=== PATIENT | male | born 1935 | race Caucasian/White ===

== ENCOUNTER 2017-02-02 09:15 | Emergency (ER) | payer MEDICARE, OTHER ==
[~2017-02-02] VITALS: Ht 167.6 cm; Wt 72.5 kg
[2017-02-02 09:16] VITALS: BP 156/73; PULSE 83; RESP 18; TEMP 97.8; O2SAT 94
[2017-02-02] MEDS ORDERED: ASPI-516 CHEW (09:30)
[2017-02-02] MEDS ORDERED: METO100T PO (09:30)
[2017-02-02] MEDS ORDERED: LOVA40TA PO (09:30)
[2017-02-02] MEDS ORDERED: AMLO10TA2 PO (09:30)
[2017-02-02 09:31] VITALS: BP 147/70; PULSE 82; RESP 18; O2SAT 98
[2017-02-02] MEDS ORDERED: KETOROLAC TROMETHAMINE 30 MG/ML (IVP) VIAL IV PUSH ONE (09:45)
[2017-02-02] MEDS ORDERED: methylPREDNISolone SOD SUCC 125 MG/2 ML VIAL IV PUSH ONE (09:45)
[2017-02-02 10:02] LABS: AUTOMATED NEUTROPHIL # 7.9 TH/MM3 (1.8-7.7); BASOPHIL # 0.1 TH/MM3 (0-0.2); BASOPHIL % 0.6 % (0.0-2.0); EOSINOPHIL # 0.3 TH/MM3 (0-0.4); EOSINOPHIL % 2.5 % (0.0-4.0); HEMATOCRIT 43.4 % (39.0-51.0); HEMOGLOBIN 14.3 GM/DL (13.0-17.0); LYMPH % 15.8 % (9.0-44.0); LYMPHOCYTE # 1.9 TH/MM3 (1.0-4.8); MEAN PLATELET VOLUME 8.2 FL (7.0-11.0); MONO % 13.5 % (0.0-8.0); MONOCYTE # 1.6 TH/MM3 (0-0.9); NEUT % 67.6 % (16.0-70.0); PLATELET COUNT 228 TH/MM3 (150-450); RED BLOOD COUNT 4.47 MIL/MM3 (4.50-5.90); RED CELL DISTRIBUTION WIDTH 13.3 % (11.6-17.2); WHITE BLOOD COUNT 11.7 TH/MM3 (4.0-11.0)
[2017-02-02 10:25] LABS: BICARBONATE 29.2 MEQ/L (21.0-32.0); C-REACTIVE PROTEIN 0.36 MG/DL (0.00-0.30); CALCIUM 8.9 MG/DL (8.5-10.1); CREATININE 0.98 MG/DL (0.60-1.30)
--- NOTE | 2017-02-02 10:31 | RADRPT ---
EXAM DATE/TIME: 02/02/2017 10:09 [facility] COMPARISON: No previous studies available for comparison. INDICATIONS : Left arm pain. MEDICAL HISTORY : Hypercholesterolemia. Hypertension. Cardiac disorders. SURGICAL HISTORY : Coronary artery stent. ENCOUNTER: Initial ACUITY: 1 day PAIN SCORE: 8/10 LOCATION: Left arm. FINDINGS: There is spontaneous flow documented in the brachial, basilic, cephalic, axillary, and subclavian vei ns. The vessels are compressible and augmentation response is documented. No filling defects are se en. The flow is phasic with respiration. Direction of flow in the jugular vein is caudal. CONCLUSION: No evidence of deep venous thrombosis within the left upper extremity. Sebastian Wright MD on February 02, 2017 at 10:28 Board Certified Radiologist. This report was verified electronically.
--- NOTE | 2017-02-02 10:49 | PD ---
HPI Chief Complaint: Pain: Acute or Chronic Time Seen by Provider: 09:41 Travel History International Travel<30 days: No Contact w/Intl Traveler<30days: No Traveled to known affect area: No History of Present Illness HPI This is an 81-year-old male who presents to the emergency department with pain in his left arm, constant, severe that started last night keeping him from sleep , worse with movement making it difficult for him to raise his arm. He denies any fevers or chills. 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 PFSH Past Medical History Cardiovascular Problems: Yes High Cholesterol: Yes Hypertension: Yes Past Surgical History Coronary Stent: Yes Social History Alcohol Use: Yes Tobacco Use: No Substance Use: No Allergies-Medications (Allergen,Severity, Reaction): Coded Allergies: No Known Allergies (Verified Allergy, Unknown, 02/02/17) Reported Meds & Prescriptions Reported Meds & Active Scripts Active Reported Metoprolol Tartrate 100 Mg Tab 100 Mg PO DAILY Lovastatin 40 Mg Tab 40 Mg PO DAILY Amlodipine (Amlodipine Besylate) 10 Mg Tab 10 Mg PO DAILY Aspirin 81 Mg Chew 81 Mg CHEW DAILY Review of Systems Except as stated in HPI: all other systems reviewed are Neg Physical Exam Narrative GENERAL:Well appearing, no acute distress SKIN: Focused skin assessment warm and dry. No skin changes over the left wrist with no redness. HEAD: Atraumatic. Normocephalic. EYES: Pupils equal and round. No injection or drainage. ENT: Moist mucous membranes NECK: Trachea midline. CARDIOVASCULAR: Regular rate and rhythm. No murmur appreciated. RESPIRATORY: Clear to auscultation. Breath sounds equal bilaterally. GASTROINTESTINAL: Abdomen soft, non-tender, nondistended. MUSCULOSKELETAL: Severe pain with flexion and extension of the left wrist, tender to palpation over the left wrist with no obvious effusion, no focal tenderness of the proximal left arm, elbow or hand. Minimal warmth of the left wrist. NEUROLOGICAL: Awake and alert. No obvious cranial nerve deficits. No dysarthria or aphasia. No upper or lower extremity drift. No upper extremity ataxia. Visual mohan intact. PSYCHIATRIC: Appropriate mood and affect; insight and judgment normal. Data Data Last Documented VS Vital Signs Date Time Temp Pulse Resp B/P (MAP) Pulse Ox O2 Delivery O2 Flow Rate FiO2 02/02/17 09:31 82 18 147/70 (95) 98 Room Air 02/02/17 09:16 97.8 Orders Orders Complete Blood Count With Diff (02/02/17 09:41) Basic Metabolic Panel (Bmp) (02/02/17 09:41) Westergren Sedimentation Rate (02/02/17 09:41) C-Reactive Protein (Crp) (02/02/17 09:41) Ketorolac Inj (Toradol Inj) (02/02/17 09:45) Methylprednisolone So Succ Inj (Solumedr (02/02/17 09:45) Wrist, Complete ([id number]) (02/02/17 ) Us Arm Venous Doppler (02/02/17 ) Labs Laboratory Tests Test 02/02/17 09:45 White Blood Count 11.7 TH/MM3 Red Blood Count 4.47 MIL/MM3 Hemoglobin 14.3 GM/DL Hematocrit 43.4 % Mean Corpuscular Volume 97.0 FL Mean Corpuscular Hemoglobin 32.0 PG Mean Corpuscular Hemoglobin Concent 33.0 % Red Cell Distribution Width 13.3 % Platelet Count 228 TH/MM3 Mean Platelet Volume 8.2 FL Neutrophils (%) (Auto) 67.6 % Lymphocytes (%) (Auto) 15.8 % Monocytes (%) (Auto) 13.5 % Eosinophils (%) (Auto) 2.5 % Basophils (%) (Auto) 0.6 % Neutrophils # (Auto) 7.9 TH/MM3 Lymphocytes # (Auto) 1.9 TH/MM3 Monocytes # (Auto) 1.6 TH/MM3 Eosinophils # (Auto) 0.3 TH/MM3 Basophils # (Auto) 0.1 TH/MM3 CBC Comment DIFF FINAL Differential Comment Erythrocyte Sedimentation Rate 12 mm/hr Blood Urea Nitrogen 10 MG/DL Creatinine 0.98 MG/DL Random Glucose 100 MG/DL Calcium Level 8.9 MG/DL Sodium Level 138 MEQ/L Potassium Level 3.9 MEQ/L Chloride Level 106 MEQ/L Carbon Dioxide Level 29.2 MEQ/L Anion Gap 3 MEQ/L Estimat Glomerular Filtration Rate 74 ML/MIN C-Reactive Protein 0.36 MG/DL MDM Medical Decision Making Medical Screen Exam Complete: Yes Emergency Medical Condition: Yes Interpretation(s) Mild leukocytosis Sedimentation rate is normal CRP is 0.36 Last 24 hours Impressions Wrist X-Ray 02/02/17 0000 Signed Impressions: Service Date/Time: Thursday, February 02, 2017 11:07 - CONCLUSION: 1. Mild degenerative changes involving the radioscaphoid and first carpometacarpal joints. 2. No acute fracture or dislocation. Sebastian Wright MD Upper Extremity Ultrasound 02/02/17 0000 Signed Impressions: Service Date/Time: Thursday, February 02, 2017 10:09 - CONCLUSION: No evidence of deep venous thrombosis within the left upper extremity. Sebastian Wright MD Differential Diagnosis Osteoarthritis, gout, septic arthritis, DVT Narrative Course This is an 81-year-old male who presents to the emergency department with pain in his left forearm. The focal area of pain appears to be the left wrist as he has significant pain with movement of the wrist. He doesn't have an effusion on my exam and he has a normal neurovascular exam. Inflammatory markers are reassuring. X-ray confirms degenerative changes. I suspect this is a flare of osteoarthritis. Patient was given a low dose of Toradol and steroids. He'll be discharged on tylenol and tramadol and asked to follow-up with his primary care physician. Diagnosis Primary Impression: Osteoarthritis of wrist Qualified Codes: M19.032 - Primary osteoarthritis, left wrist Patient Instructions: General Instructions Additional Instructions: If you develop worsening pain, swelling, or fever return to the emergency department. Follow up with an orthopedic physician or your primary care physician if your symptoms don't improve. Med/Other Pt SpecificInfo: Prescription(s) given Scripts Tramadol (Tramadol) 50 Mg Tab 50 MG PO Q6H Y for PAIN, #12 TAB 0 Refills Prov: Alisia Haile MD 02/02/17 Acetaminophen (Tylenol) 325 Mg Tab 650 MG PO Q6H Y for PAIN SCALE 4 TO 10, #14 TAB 0 Refills Prov: Alisia Haile MD 02/02/17 Disposition: 01 DISCHARGE HOME Condition: Stable Alisia Haile MD Feb 02, 2017 10:49
--- NOTE | 2017-02-02 12:20 | RADRPT ---
EXAM DATE/TIME: 02/02/2017 11:07 [facility] COMPARISON: No previous studies available for comparison. INDICATIONS : Left wrist pain and swelling, No trauma per patient MEDICAL HISTORY : None. SURGICAL HISTORY : None. ENCOUNTER: Initial ACUITY: 1 day PAIN SCORE: 7/10 LOCATION: Left chest FINDINGS: Mild degenerative changes are noted involving the radioscaphoid joint and the first carpometacarpal j oint. There is no acute fracture or dislocation of the left wrist. CONCLUSION: 1. Mild degenerative changes involving the radioscaphoid and first carpometacarpal joints. 2. No acute fracture or dislocation. Sebastian Wright MD on February 02, 2017 at 12:16 Board Certified Radiologist. This report was verified electronically.
[2017-02-02] MEDS ORDERED: TYLE325T PO (12:34)
[2017-02-02] MEDS ORDERED: TRAM50TA PO (12:34)
== END 2017-02-02 13:42 | disposition home or self-care (01) ==
LOC: NEPC 09:15
DX: M19.032 Primary osteoarthritis, left wrist (principal); E78.00 Pure hypercholesterolemia, unspecified; I10 Essential (primary) hypertension; Z79.82 Long term (current) use of aspirin; Z79.899 Other long term (current) drug therapy
CPT/HCPCS: 73110; 80048; 85025; 85652; 86140; 93971; 96374; 96375; 99285; J1885; J2930